=== PATIENT | female | born 1990 | race Two or more races ===

== ENCOUNTER 2018-10-22 01:42 | Emergency (ER) | payer OTHER ==
[~2018-10-22] VITALS: Ht 160 cm; Wt 59.9 kg
[2018-10-22] MEDS ORDERED: PHENERGAN25 MG PO (07:35)
[2018-10-22] MEDS ORDERED: PEPCID40 MG PO (07:35)
== END 2018-10-22 07:51 ==
LOC: ER 01:42
DX: K52.89 Other specified noninfective gastroenteritis and colitis (principal)

== ENCOUNTER 2019-02-17 21:25 | Inpatient (IN) | payer OTHER ==
[~2019-02-17] VITALS: Ht 160 cm; Wt 156.0 kg
[~2019-02-17 21:25] MED LIST: PEPCID40 MG PO; PHENERGAN25 MG PO
[2019-02-18] MEDS ORDERED: PRENATAL 19 TA1 EACH PO (08:34)
[2019-02-18] MEDS ORDERED: VALTREX1000 MG PO (08:36)
[2019-02-18] MEDS ORDERED: ZANTAC150 MG PO (08:36)
[2019-02-18] MEDS ORDERED: PNEU16DI2 (08:37)
[2019-02-18] MEDS ORDERED: FE C PLUS TABL1 EACH PO (08:37)
[2019-02-21] MEDS ORDERED: GAS RELIEF125 MG PO (07:22)
[2019-02-21] MEDS ORDERED: IBUPROFEN800 MG PO (07:22)
[2019-02-21] MEDS ORDERED: DOCUSATE SODIU100 MG PO (07:22)
[2019-02-21] MEDS ORDERED: PREPLUS CA-FE1 EACH PO (07:22)
== END 2019-02-21 12:42 | disposition home or self-care (01) | DRG 788 ==
LOC: OBS/DEL 21:25 → OB/GYN 02-18 07:34 → LDR 02-18 07:34 → OBS/DEL 02-18 07:34 → OB/GYN 02-18 18:12
PROVIDERS: ADMIT Obstetrics & Gynecology
PROC: 3E0P7VZ Introduction of Hormone into Female Reproductive, Via Natural or Artificial Opening (ICD-10-PCS; 2019-02-18)
PROC: 3E033VJ Introduction of Other Hormone into Peripheral Vein, Percutaneous Approach (ICD-10-PCS; 2019-02-18)
PROC: 4A1HXCZ Monitoring of Products of Conception, Cardiac Rate, External Approach (ICD-10-PCS; 2019-02-18)
PROC: 10D00Z1 Extraction of Products of Conception, Low, Open Approach (ICD-10-PCS; principal; 2019-02-18 15:00)
DX: O82 Encounter for cesarean delivery without indication (principal); O61.0 Failed medical induction of labor; Z3A.39 39 weeks gestation of pregnancy; Z37.0 Single live birth